=== PATIENT | female | born 1950 | race Caucasian/White ===

== ENCOUNTER 2018-11-04 14:46 | Outpatient (CLI) | payer MEDICARE ==
--- NOTE | 2018-11-04 15:21 | RAD ---
XR Chest Pa Lat STANDARD HISTORY: Cough, recent bronchoscopy FINDINGS: The heart size is normal. The lungs are well expanded without focal areas of consolidation or pleura l effusions. There is a small right apical pneumothorax measuring about 30%. Discussed over the telephone with Dr. Shin Michael at 3:17 PM
== END 2018-11-04 14:47 | disposition home or self-care (01) ==
LOC: NAV RAD 14:46
PROVIDERS: ATTEND Orthopaedic Surgery Sports Medicine
DX: R06.00 Dyspnea, unspecified (principal)
CPT/HCPCS: 36415; 71045; 71046; 80053; 85025; 85610; 85730; 94760

== ENCOUNTER 2018-11-04 15:04 | Emergency (ER) | payer MEDICARE ==
[2018-11-04 15:40] LABS: #Lymphocytes 1.6 thou/uL (1.20-3.40); #Monocytes 0.5 thou/uL (0.11-0.59); #Neutrophils 6.8 thou/uL (1.40-6.50); %Basophils 0.5 % (0.0-1.0); %Eosinophils 0.1 % (0.0-10.0); %Lymphocytes 18.1 % (21.0-51.0); %Monocytes 5.9 % (0.0-10.0); %Neutrophils 75.4 % (42.0-75.0); Hemoglobin 14.7 g/dL (12.0-16.0); Mean Corpuscular HGB CONC 32.4 g/dL (32.0-36.0); Mean Corpuscular Hemoglobin 29.7 pg (27.0-31.0); Mean Corpuscular Volume 91.6 fL (78.0-98.0); Mean Platelet Volume 6.5 fL (7.4-10.4); Platelet Count 197 thou/uL (130-400); RBC Distribution Width 12.2 % (11.5-14.5); Red Blood Cell (RBC) Count 4.96 mill/uL (4.20-5.40)
[2018-11-04 15:44] LABS: PTT 33.5 SEC (22.9-36.1); Prothrombin Time 12.7 SEC (12.0-14.7)
[2018-11-04 15:53] LABS: ALT (SGPT) 24 U/L (8-55); AST (SGOT) 28 U/L (5-34); Albumin 4.5 g/dL (3.4-4.8); Alkaline Phosphatase 83 U/L (40-150); Anion Gap 16 mmol/L (10-20); BUN (Urea Nitrogen) 14 mg/dL (9.8-20.1); Bilirubin, Total 0.4 mg/dL (0.2-1.2); Calc. Creatinine Clearance 0 mL/min (70-130); Calcium 9.7 mg/dL (7.8-10.44); Carbon Dioxide 23 mmol/L (23-31); Chloride 106 mmol/L (98-107); Estimated GFR-MDRD 81; Globulin 2.7 g/dL (2.4-3.5); Glucose 102 mg/dL (80-115); Potassium 3.7 mmol/L (3.5-5.1); Protein, Total 7.2 g/dL (6.0-8.3); Sodium 141 mmol/L (136-145)
--- NOTE | 2018-11-04 16:24 | RAD ---
RADIOGRAPH CHEST 1 VIEW: 11/04/18, 3:50 p.m. HISTORY: 68-year-old female with cough, dyspnea, and right pneumothorax. FINDINGS: There are no air space densities, pulmonary edema, pneumothorax, or cardiomegaly. The lateral costop hrenic angles are sharp. There is a new small bore catheter overlying the apex of the right lung. The previously demonstrated right apical pneumothorax is no longer visualized. IMPRESSION: 1. No acute cardiopulmonary findings. 2. Interval resolution of the right pneumothorax upon placement of small caliber right apical pl eural catheter. jn [] POS: [facility]
== END 2018-11-04 17:00 | disposition home or self-care (01) ==
LOC: NAV ERS 15:04
DX: J93.9 Pneumothorax, unspecified (principal); I10 Essential (primary) hypertension; Z85.3 Personal history of malignant neoplasm of breast; Z79.899 Other long term (current) drug therapy
CPT/HCPCS: 32551; 36415; 71045; 80053; 85025; 85610; 85730; 94760